=== PATIENT | female | born 1995 ===

== ENCOUNTER 2019-11-25 08:07 | Inpatient (IN) | payer OTHER ==
[2019-11-25] MEDS ORDERED: FAMOTIDINE 20 MG/2 ML INJ IV ONE (08:40)
[2019-11-25] MEDS ORDERED: BICITRA ORAL LIQD 30ML PO ONE (08:40)
[2019-11-25] MEDS ORDERED: METOCLOPRAMIDE 10 MG/2 ML INJ IV ONE (08:40)
[2019-11-25] MEDS ORDERED: OXYTOCIN 20 UNIT/1000ML DRIP 20 UNITS/1,000 ML BAG IV SCH ×2 (09:00→10:00)
[2019-11-25] MEDS ORDERED: LACTATED RINGERS 1,000 ML IV SCH (09:00)
[2019-11-25] MEDS ORDERED: ceFAZolin/Water 2 GM/20 ML 2 GM/20 ML SYRINGE IV NR (09:00)
--- NOTE | 2019-11-25 09:17 | History and Physical Report ---
History of Present Illness Date of examination: 11/25/19 Date of admission: 11/25/19 08:07 Chief complaint: Previous section, desires TOLAC Past History Past Surgical History: section Social history: no significant social history - Obstetrical History Expected Date of Delivery: 11/29/19 Actual Gestation: 39 Week(s) 3 Day(s) : 3 Para: 1 Medications and Allergies Allergies Allergy/AdvReac Type Severity Reaction Status Date / Time No Known Allergies Allergy Verified 11/25/19 08:38 Home Medications Medication Instructions Recorded Confirmed Last Taken Type No Known Home Medications [No 11/25/19 11/25/19 Unknown History Reported Home Medications] Active Meds: Active Medications Oxytocin/Sodium Chloride (Pitocin/Ns 20 Unit/1000ml Drip) 20 units in 1,000 mls @ 0 mls/hr IV TITR NIMA Lactated Ringer's (Lactated Ringers) 1,000 mls @ 2,250 mls/hr IV PREOP NIMA Stop: 11/26/19 09:27 Cefazolin Sodium (Ancef/Sterile Water 2 Gm/20 Ml) 2 gm in 20 mls @ 80 mls/hr IV PREOP NR; Protocol Stop: 11/25/19 23:59 Review of Systems All systems: negative (contractions) - Vital Signs Vital signs: Vital Signs Pulse Pulse Ox 99 H 100 11/25/19 08:58 11/25/19 08:58 Temp Pulse Resp BP Pulse Ox 94 H 116/63 98 11/25/19 09:13 11/25/19 08:59 11/25/19 09:13 - Physical Exam Breasts: Positive: deferred Cardiovascular: Regular rate Lungs: Positive: Clear to auscultation Abdomen: Positive: normal appearance, soft, normal bowel sounds Genitourinary (Female): Positive: normal external genitalia, normal perenium Anus/Rectum: Positive: normal perianal skin Extremities: Positive: normal Deep Tendon Reflex Grade: Normal +2 - Obstetrical FHR: category 1 Uterine Contraction Monitor Mode: External Cervical Dilatation: 1 Cervical Effacement Percentage: 80 station: -2 Uterine Contraction Pattern: Regular Results Result Diagrams: 11/25/19 08:50 All other labs normal. Assessment and Plan patient desires TOLAC informed consent obtained plan for epidural on admission CFM GBS prophylaxis in active labor maternal/ well being reassuring overall Josie Kaye MD
[2019-11-25 09:25] LABS: Basophils # (Auto) 0.1 K/mm3 (0.0-0.1); Basophils % (Auto) 0.6 % (0.0-1.8); Eosinophils # (Auto) 0.1 K/mm3 (0.0-0.4); Hematocrit 36.5 % (30.3-42.9); Hemoglobin 11.7 gm/dl (10.1-14.3); Lymphocytes # (Auto) 2.1 K/mm3 (1.2-5.4); Lymphocytes % (Auto) 18.1 % (13.4-35.0); Mean Corpuscular HGB Conc 32 % (30-34); Mean Corpuscular Volume 72 fl (79-97); Monocytes # (Auto) 0.7 K/mm3 (0.0-0.8); Monocytes % (Auto) 5.9 % (0.0-7.3); Platelet Count 160 K/mm3 (140-440); Red Blood Count 5.03 M/mm3 (3.65-5.03); Red Cell Distribution Width 17.3 % (13.2-15.2)
[2019-11-25] MEDS ORDERED: BUTORPHANOL 2 MG/1 ML INJ IV PRN ×2 (09:29)
[2019-11-25] MEDS ORDERED: LIDOCAINE (2%) 20 MG/1 ML VIAL 20 ML MDV INFILTRATI SCH (10:00)
[2019-11-25] MEDS ORDERED: MINERAL OIL 30 ML ORAL LIQD PO PRN (10:00)
[2019-11-25] MEDS ORDERED: fentaNYL 100 MCG/2 ML INJ IV PRN (10:00)
[2019-11-25] MEDS ORDERED: TERBUTALINE 1 MG/1 ML INJ SUB-Q PRN (10:00)
[2019-11-25] MEDS ORDERED: ONDANSETRON 4 MG/2 ML INJ IV PRN ×4 (10:00→23:16)
[2019-11-25] MEDS ORDERED: OXYTOCIN DRIP 30 UNITS/500 ML BAG IV SCH ×2 (10:00)
[2019-11-25] MEDS ORDERED: TERBUTALINE 1 MG/1 ML INJ IVP PRN (10:00)
[2019-11-25] MEDS ORDERED: NalbUPHINE 10 MG/1 ML INJ IV PRN ×3 (10:00→13:14)
[2019-11-25] MEDS ORDERED: MORPHINE 4 MG/1 ML INJ IV PRN (10:10)
[2019-11-25] MEDS ORDERED: PROMETHAZINE 25 MG TAB PO PRN ×2 (10:10→23:16)
[2019-11-25] MEDS ORDERED: NALOXONE 0.4 MG/1 ML INJ IV PRN (10:10)
[2019-11-25] MEDS ORDERED: PROMETHAZINE 25 MG RECT SUPP PR PRN ×2 (10:10→23:16)
--- NOTE | 2019-11-25 10:16 | Anesthesia Consultation ---
Anesthesia Consult and Med Hx Date of service: 11/25/19 - Airway Anesthetic Teeth Evaluation: Good ROM Head & Neck: Adequate Mental/Hyoid Distance: Adequate Mallampati Class: Class III Intubation Access Assessment: Possibly Difficult - Pulmonary Exam CTA: Yes - Cardiac Exam Cardiac Exam: RRR - Pre-Operative Health Status ASA Pre-Surgery Classification: ASA2 Proposed Anesthetic Plan: Epidural - Pulmonary Hx Smoking: No Hx Asthma: No COPD: No Hx Pneumonia: No Hx Sleep Apnea: No - Cardiovascular System Hx Hypertension: No - Central Nervous System Hx Seizures: No Hx Psychiatric Problems: No - Gastrointestinal Hx Gastroesophageal Reflux Disease: No - Endocrine Hx Renal Disease: No Hx End Stage Renal Disease: No Hx Hypothyroidism: No Hx Hyperthyroidism: No - Hematic Hx Anemia: No Hx Sickle Cell Disease: No - Other Systems Hx Alcohol Use: No
[2019-11-25] MEDS: LACTATED RINGERS 1,000 ML IV SCH ×2 (10:38→10:56)
[2019-11-25] MEDS ORDERED: diphenhydrAMINE 50 MG/ML VIAL IV PRN ×2 (11:00→13:14)
[2019-11-25] MEDS ORDERED: HYDROmorphone 1 MG/1 ML INJ IV PRN (11:00)
[2019-11-25] MEDS ORDERED: AMPICILLIN/NS 2 GM/100 ML 2 GM/100 ML BAG IV ONE (12:00)
[2019-11-25] MEDS ORDERED: DEXMEDETOMIDINE 200 MCG/2 ML VIAL IV ONE (12:50)
[2019-11-25] MEDS ORDERED: NALOXONE 2 MG/2 ML INJ IV PRN (13:14)
--- NOTE | 2019-11-25 13:14 | Progress Note ---
Labor Epidural - Labor Epidural Start Time: 12:55 Stop Time: 13:04 Performed by:: JOHN BARNEY Procedure: Patient is requesting a laboring epidural for laboring pain. Patient IDed, H&P reviewed, all questions and concerns were answered, and consent was signed. Timeout was performed at bedside. Patient in sitting position. Sterile prep and drape was performed. 3ml of 1% lidocaine skin wheal at L[3]- L [4]. 18- gauge Touhy epidural needle was advanced to loss of resistance with air technique. Negative CSF negative blood. Epidural catheter advanced to [12] centimeters. [-] Aspiration [-] test dose. Sterile dressing applied. Patient tolerated procedure.
[2019-11-25] MEDS: ePHEDrine SULFATE 50 MG/1 ML INJ IV PRN ×2 (13:28→13:35)
[2019-11-25] MEDS ORDERED: fentaNYL-BUPIV 2 MCG/ML-0.125% 200 MCG/100 ML BAG EPIDURAL SCH (14:00)
[2019-11-25] MEDS ORDERED: AMPICILLIN/NS 1 GM/50 ML 1 GM/50 ML BAG IV SCH (14:00)
--- NOTE | 2019-11-25 16:52 | Progress Note ---
Subjective - Subjective Date of service: 11/25/19 Interval history: AROM light meconium cervix 4cm/100%/-2 [place]:Q2 minutes plan to dose epidural and continue to monitor FHT Category 1 Maternal/ wellbeing reassuring overall Josie Kaye MD Objective - Vital Signs Vital Signs: Vital Signs - 12hr 11/25/19 11/25/19 11/25/19 08:58 08:59 09:03 Temperature Pulse Rate 99 H 95 H 99 H Blood Pressure 116/63 O2 Sat by Pulse 100 97 Oximetry 11/25/19 11/25/19 11/25/19 09:08 09:13 09:18 Temperature Pulse Rate 95 H 94 H 89 Blood Pressure O2 Sat by Pulse 98 98 96 Oximetry 11/25/19 11/25/19 11/25/19 09:23 09:28 09:33 Temperature Pulse Rate 83 80 95 H Blood Pressure O2 Sat by Pulse 100 97 97 Oximetry 11/25/19 11/25/19 11/25/19 09:38 09:43 09:48 Temperature Pulse Rate 93 H 85 85 Blood Pressure O2 Sat by Pulse 97 96 98 Oximetry 11/25/19 11/25/19 11/25/19 09:53 09:59 10:49 Temperature Pulse Rate 93 H 85 85 Blood Pressure 117/58 118/67 O2 Sat by Pulse 99 Oximetry 11/25/19 11/25/19 11/25/19 10:50 11:17 11:22 Temperature 98.2 F Pulse Rate 90 85 Blood Pressure O2 Sat by Pulse 96 96 Oximetry 11/25/19 11/25/19 11/25/19 11:27 11:32 11:37 Temperature Pulse Rate 102 H 89 89 Blood Pressure O2 Sat by Pulse 97 97 97 Oximetry 11/25/19 11/25/19 11/25/19 11:42 11:47 11:50 Temperature Pulse Rate 96 H 89 83 Blood Pressure 115/65 O2 Sat by Pulse 98 97 Oximetry 11/25/19 11/25/19 11/25/19 11:52 11:57 12:02 Temperature Pulse Rate 91 H 84 89 Blood Pressure O2 Sat by Pulse 98 97 97 Oximetry 11/25/19 11/25/19 11/25/19 12:07 12:12 12:17 Temperature Pulse Rate 87 83 91 H Blood Pressure O2 Sat by Pulse 97 98 98 Oximetry 11/25/19 11/25/19 11/25/19 12:19 12:22 12:27 Temperature Pulse Rate 88 99 H 86 Blood Pressure 111/60 O2 Sat by Pulse 98 98 Oximetry 11/25/19 11/25/19 11/25/19 12:32 12:37 12:42 Temperature Pulse Rate 96 H 90 97 H Blood Pressure O2 Sat by Pulse 98 98 99 Oximetry 11/25/19 11/25/19 11/25/19 12:47 12:49 12:52 Temperature Pulse Rate 99 H 79 114 H Blood Pressure 117/66 O2 Sat by Pulse 98 98 Oximetry 11/25/19 11/25/19 11/25/19 12:57 13:02 13:04 Temperature Pulse Rate 119 H 112 H 113 H Blood Pressure 120/71 124/69 O2 Sat by Pulse 100 98 Oximetry 11/25/19 11/25/19 11/25/19 13:06 13:07 13:09 Temperature Pulse Rate 103 H 99 H 97 H Blood Pressure 118/72 119/58 O2 Sat by Pulse 98 Oximetry 11/25/19 11/25/19 11/25/19 13:10 13:12 13:14 Temperature Pulse Rate 100 H 91 H 103 H Blood Pressure 125/65 124/65 130/63 O2 Sat by Pulse 99 Oximetry 11/25/19 11/25/19 11/25/19 13:16 13:17 13:19 Temperature Pulse Rate 92 H 116 H 84 Blood Pressure 128/62 110/52 O2 Sat by Pulse 99 Oximetry 11/25/19 11/25/19 11/25/19 13:20 13:22 13:23 Temperature Pulse Rate 93 H 102 H 92 H Blood Pressure 103/55 102/46 O2 Sat by Pulse 98 Oximetry 11/25/19 11/25/19 11/25/19 13:25 13:26 13:27 Temperature Pulse Rate 84 89 88 Blood Pressure 89/49 96/53 O2 Sat by Pulse 98 Oximetry 11/25/19 11/25/19 11/25/19 13:28 13:30 13:32 Temperature Pulse Rate 91 H 87 89 Blood Pressure 96/51 94/51 101/57 O2 Sat by Pulse 97 Oximetry 11/25/19 11/25/19 11/25/19 13:34 13:36 13:37 Temperature Pulse Rate 90 94 H 94 H Blood Pressure 104/56 104/53 O2 Sat by Pulse 98 Oximetry 11/25/19 11/25/19 11/25/19 13:38 13:40 13:42 Temperature Pulse Rate 90 90 102 H Blood Pressure 106/51 95/53 103/54 O2 Sat by Pulse 96 Oximetry 11/25/19 11/25/19 11/25/19 13:45 13:47 13:48 Temperature Pulse Rate 91 H 94 H 103 H Blood Pressure 106/51 98/54 102/52 O2 Sat by Pulse 98 Oximetry 11/25/19 11/25/19 11/25/19 13:51 13:52 13:54 Temperature Pulse Rate 93 H 96 H 89 Blood Pressure 96/51 96/54 101/54 O2 Sat by Pulse 97 Oximetry 11/25/19 11/25/19 11/25/19 13:56 13:57 13:58 Temperature Pulse Rate 90 89 96 H Blood Pressure 98/54 99/56 O2 Sat by Pulse 98 Oximetry 11/25/19 11/25/19 11/25/19 14:00 14:02 14:07 Temperature Pulse Rate 109 H 90 92 H Blood Pressure 102/58 O2 Sat by Pulse 99 98 Oximetry 11/25/19 11/25/19 11/25/19 14:12 14:17 14:18 Temperature Pulse Rate 89 88 88 Blood Pressure 110/58 O2 Sat by Pulse 99 98 Oximetry 11/25/19 11/25/19 11/25/19 14:22 14:27 14:32 Temperature Pulse Rate 90 112 H 102 H Blood Pressure O2 Sat by Pulse 98 99 99 Oximetry 11/25/19 11/25/19 11/25/19 14:34 14:37 14:42 Temperature Pulse Rate 99 H 90 90 Blood Pressure 112/54 O2 Sat by Pulse 99 99 Oximetry 11/25/19 11/25/19 11/25/19 14:47 14:52 14:57 Temperature Pulse Rate 93 H 89 91 H Blood Pressure O2 Sat by Pulse 99 99 98 Oximetry 11/25/19 11/25/19 11/25/19 15:02 15:07 15:12 Temperature Pulse Rate 97 H 95 H 94 H Blood Pressure O2 Sat by Pulse 97 97 98 Oximetry 11/25/19 11/25/19 11/25/19 15:16 15:17 15:22 Temperature Pulse Rate 88 91 H 100 H Blood Pressure 107/56 O2 Sat by Pulse 98 99 Oximetry 11/25/19 11/25/19 11/25/19 15:27 15:32 15:37 Temperature Pulse Rate 95 H 99 H 101 H Blood Pressure O2 Sat by Pulse 98 99 99 Oximetry 11/25/19 11/25/19 11/25/19 15:42 15:46 15:47 Temperature Pulse Rate 88 83 87 Blood Pressure 112/65 O2 Sat by Pulse 99 98 Oximetry 11/25/19 11/25/19 11/25/19 15:52 15:57 16:02 Temperature Pulse Rate 94 H 89 98 H Blood Pressure O2 Sat by Pulse 98 99 99 Oximetry 11/25/19 11/25/19 11/25/19 16:07 16:12 16:16 Temperature Pulse Rate 86 101 H 86 Blood Pressure 119/59 O2 Sat by Pulse 98 97 Oximetry 11/25/19 11/25/19 11/25/19 16:17 16:22 16:27 Temperature Pulse Rate 97 H 90 96 H Blood Pressure O2 Sat by Pulse 98 99 98 Oximetry 11/25/19 11/25/19 11/25/19 16:32 16:37 16:42 Temperature Pulse Rate 97 H 88 89 Blood Pressure O2 Sat by Pulse 99 100 99 Oximetry 11/25/19 11/25/19 16:45 16:47 Temperature Pulse Rate 96 H 95 H Blood Pressure 140/85 O2 Sat by Pulse 99 Oximetry - Labs Labs: Abnormal Labs 11/25/19 08:50 WBC 11.6 H MCV 72 L MCH 23 L RDW 17.3 H Seg Neutrophils % 74.4 H Seg Neutrophils # 8.6 H Laboratory Results - last 24 hr 11/25/19 11/25/19 11/25/19 08:50 08:50 08:50 WBC 11.6 H RBC 5.03 Hgb 11.7 Hct 36.5 MCV 72 L MCH 23 L MCHC 32 RDW 17.3 H Plt Count 160 Lymph % (Auto) 18.1 [place] % (Auto) 5.9 Eos % (Auto) 1.0 Baso % (Auto) 0.6 Lymph # 2.1 [place] # 0.7 Eos # 0.1 Baso # 0.1 Seg Neutrophils % 74.4 H Seg Neutrophils # 8.6 H Syphilis IgG Antibody Nonreactive Blood Type O POSITIVE Antibody Screen Negative
[2019-11-25] MEDS ORDERED: BUPIVACAINE/PF (0.5%) 5 MG/1 ML 10 ML VIAL INFILTRATI ONE (17:19)
--- NOTE | 2019-11-25 19:31 | Progress Note ---
Assessment and Plan A: IUP@ 39.3 wks CAT 1 FHT P: Continue monitoring Anticipate Subjective - Subjective Date of service: 11/25/19 Principal diagnosis: IUP@ 39.3 wks Interval history: A: IUP@ 39.3 wks CAT 1 FHT P: Continue monitoring Anticipate Patient reports: movement normal Objective - Vital Signs Vital Signs: Vital Signs - 12hr 11/25/19 11/25/19 11/25/19 08:58 08:59 09:03 Temperature Pulse Rate 99 H 95 H 99 H Blood Pressure 116/63 O2 Sat by Pulse 100 97 Oximetry 11/25/19 11/25/19 11/25/19 09:08 09:13 09:18 Temperature Pulse Rate 95 H 94 H 89 Blood Pressure O2 Sat by Pulse 98 98 96 Oximetry 11/25/19 11/25/19 11/25/19 09:23 09:28 09:33 Temperature Pulse Rate 83 80 95 H Blood Pressure O2 Sat by Pulse 100 97 97 Oximetry 11/25/19 11/25/19 11/25/19 09:38 09:43 09:48 Temperature Pulse Rate 93 H 85 85 Blood Pressure O2 Sat by Pulse 97 96 98 Oximetry 11/25/19 11/25/19 11/25/19 09:53 09:59 10:49 Temperature Pulse Rate 93 H 85 85 Blood Pressure 117/58 118/67 O2 Sat by Pulse 99 Oximetry 11/25/19 11/25/19 11/25/19 10:50 11:17 11:22 Temperature 98.2 F Pulse Rate 90 85 Blood Pressure O2 Sat by Pulse 96 96 Oximetry 11/25/19 11/25/19 11/25/19 11:27 11:32 11:37 Temperature Pulse Rate 102 H 89 89 Blood Pressure O2 Sat by Pulse 97 97 97 Oximetry 11/25/19 11/25/19 11/25/19 11:42 11:47 11:50 Temperature Pulse Rate 96 H 89 83 Blood Pressure 115/65 O2 Sat by Pulse 98 97 Oximetry 11/25/19 11/25/19 11/25/19 11:52 11:57 12:02 Temperature Pulse Rate 91 H 84 89 Blood Pressure O2 Sat by Pulse 98 97 97 Oximetry 11/25/19 11/25/19 11/25/19 12:07 12:12 12:17 Temperature Pulse Rate 87 83 91 H Blood Pressure O2 Sat by Pulse 97 98 98 Oximetry 11/25/19 11/25/19 11/25/19 12:19 12:22 12:27 Temperature Pulse Rate 88 99 H 86 Blood Pressure 111/60 O2 Sat by Pulse 98 98 Oximetry 11/25/19 11/25/19 11/25/19 12:32 12:37 12:42 Temperature Pulse Rate 96 H 90 97 H Blood Pressure O2 Sat by Pulse 98 98 99 Oximetry 11/25/19 11/25/19 11/25/19 12:47 12:49 12:52 Temperature Pulse Rate 99 H 79 114 H Blood Pressure 117/66 O2 Sat by Pulse 98 98 Oximetry 11/25/19 11/25/19 11/25/19 12:57 13:02 13:04 Temperature Pulse Rate 119 H 112 H 113 H Blood Pressure 120/71 124/69 O2 Sat by Pulse 100 98 Oximetry 11/25/19 11/25/19 11/25/19 13:06 13:07 13:09 Temperature Pulse Rate 103 H 99 H 97 H Blood Pressure 118/72 119/58 O2 Sat by Pulse 98 Oximetry 11/25/19 11/25/19 11/25/19 13:10 13:12 13:14 Temperature Pulse Rate 100 H 91 H 103 H Blood Pressure 125/65 124/65 130/63 O2 Sat by Pulse 99 Oximetry 11/25/19 11/25/19 11/25/19 13:16 13:17 13:19 Temperature Pulse Rate 92 H 116 H 84 Blood Pressure 128/62 110/52 O2 Sat by Pulse 99 Oximetry 11/25/19 11/25/19 11/25/19 13:20 13:22 13:23 Temperature Pulse Rate 93 H 102 H 92 H Blood Pressure 103/55 102/46 O2 Sat by Pulse 98 Oximetry 11/25/19 11/25/19 11/25/19 13:25 13:26 13:27 Temperature Pulse Rate 84 89 88 Blood Pressure 89/49 96/53 O2 Sat by Pulse 98 Oximetry 11/25/19 11/25/19 11/25/19 13:28 13:30 13:32 Temperature Pulse Rate 91 H 87 89 Blood Pressure 96/51 94/51 101/57 O2 Sat by Pulse 97 Oximetry 11/25/19 11/25/19 11/25/19 13:34 13:36 13:37 Temperature Pulse Rate 90 94 H 94 H Blood Pressure 104/56 104/53 O2 Sat by Pulse 98 Oximetry 11/25/19 11/25/19 11/25/19 13:38 13:40 13:42 Temperature Pulse Rate 90 90 102 H Blood Pressure 106/51 95/53 103/54 O2 Sat by Pulse 96 Oximetry 11/25/19 11/25/19 11/25/19 13:45 13:47 13:48 Temperature Pulse Rate 91 H 94 H 103 H Blood Pressure 106/51 98/54 102/52 O2 Sat by Pulse 98 Oximetry 11/25/19 11/25/19 11/25/19 13:51 13:52 13:54 Temperature Pulse Rate 93 H 96 H 89 Blood Pressure 96/51 96/54 101/54 O2 Sat by Pulse 97 Oximetry 11/25/19 11/25/19 11/25/19 13:56 13:57 13:58 Temperature Pulse Rate 90 89 96 H Blood Pressure 98/54 99/56 O2 Sat by Pulse 98 Oximetry 11/25/19 11/25/19 11/25/19 14:00 14:02 14:07 Temperature 98.2 F Pulse Rate 109 H 90 92 H Blood Pressure 102/58 O2 Sat by Pulse 99 98 Oximetry 11/25/19 11/25/19 11/25/19 14:12 14:17 14:18 Temperature Pulse Rate 89 88 88 Blood Pressure 110/58 O2 Sat by Pulse 99 98 Oximetry 11/25/19 11/25/19 11/25/19 14:22 14:27 14:32 Temperature Pulse Rate 90 112 H 102 H Blood Pressure O2 Sat by Pulse 98 99 99 Oximetry 11/25/19 11/25/19 11/25/19 14:34 14:37 14:42 Temperature Pulse Rate 99 H 90 90 Blood Pressure 112/54 O2 Sat by Pulse 99 99 Oximetry 11/25/19 11/25/19 11/25/19 14:47 14:52 14:57 Temperature Pulse Rate 93 H 89 91 H Blood Pressure O2 Sat by Pulse 99 99 98 Oximetry 11/25/19 11/25/19 11/25/19 15:00 15:02 15:07 Temperature 98.0 F Pulse Rate 97 H 95 H Blood Pressure O2 Sat by Pulse 97 97 Oximetry 11/25/19 11/25/19 11/25/19 15:12 15:16 15:17 Temperature Pulse Rate 94 H 88 91 H Blood Pressure 107/56 O2 Sat by Pulse 98 98 Oximetry 11/25/19 11/25/19 11/25/19 15:22 15:27 15:32 Temperature Pulse Rate 100 H 95 H 99 H Blood Pressure O2 Sat by Pulse 99 98 99 Oximetry 11/25/19 11/25/19 11/25/19 15:37 15:42 15:46 Temperature Pulse Rate 101 H 88 83 Blood Pressure 112/65 O2 Sat by Pulse 99 99 Oximetry 11/25/19 11/25/19 11/25/19 15:47 15:52 15:57 Temperature Pulse Rate 87 94 H 89 Blood Pressure O2 Sat by Pulse 98 98 99 Oximetry 11/25/19 11/25/19 11/25/19 16:02 16:07 16:12 Temperature Pulse Rate 98 H 86 101 H Blood Pressure O2 Sat by Pulse 99 98 97 Oximetry 11/25/19 11/25/19 11/25/19 16:16 16:17 16:22 Temperature Pulse Rate 86 97 H 90 Blood Pressure 119/59 O2 Sat by Pulse 98 99 Oximetry 11/25/19 11/25/19 11/25/19 16:27 16:32 16:37 Temperature Pulse Rate 96 H 97 H 88 Blood Pressure O2 Sat by Pulse 98 99 100 Oximetry 11/25/19 11/25/19 11/25/19 16:42 16:45 16:47 Temperature Pulse Rate 89 96 H 95 H Blood Pressure 140/85 O2 Sat by Pulse 99 99 Oximetry 11/25/19 11/25/19 11/25/19 16:52 16:57 17:02 Temperature Pulse Rate 90 89 84 Blood Pressure O2 Sat by Pulse 99 98 98 Oximetry 11/25/19 11/25/19 11/25/19 17:07 17:12 17:16 Temperature Pulse Rate 92 H 97 H 88 Blood Pressure 125/81 O2 Sat by Pulse 98 98 Oximetry 11/25/19 11/25/19 11/25/19 17:17 17:22 17:27 Temperature Pulse Rate 82 96 H 92 H Blood Pressure O2 Sat by Pulse 99 99 98 Oximetry 11/25/19 11/25/19 11/25/19 17:32 17:37 17:42 Temperature Pulse Rate 101 H 85 89 Blood Pressure O2 Sat by Pulse 99 98 98 Oximetry 11/25/19 11/25/19 11/25/19 17:46 17:47 17:52 Temperature Pulse Rate 85 91 H 95 H Blood Pressure 103/58 O2 Sat by Pulse 97 97 Oximetry 11/25/19 11/25/19 11/25/19 17:57 18:02 18:07 Temperature Pulse Rate 97 H 82 89 Blood Pressure O2 Sat by Pulse 96 98 96 Oximetry 11/25/19 11/25/19 11/25/19 18:12 18:15 18:17 Temperature Pulse Rate 96 H 87 92 H Blood Pressure 106/60 O2 Sat by Pulse 98 98 Oximetry 11/25/19 11/25/19 11/25/19 18:22 18:27 18:32 Temperature Pulse Rate 86 94 H 95 H Blood Pressure O2 Sat by Pulse 97 97 97 Oximetry 11/25/19 11/25/19 11/25/19 18:37 18:42 18:45 Temperature Pulse Rate 104 H 93 H 102 H Blood Pressure 102/56 O2 Sat by Pulse 99 98 Oximetry 11/25/19 11/25/19 11/25/19 18:47 18:52 18:57 Temperature Pulse Rate 95 H 94 H 101 H Blood Pressure O2 Sat by Pulse 98 99 99 Oximetry 11/25/19 11/25/19 11/25/19 19:02 19:07 19:12 Temperature Pulse Rate 90 94 H 98 H Blood Pressure O2 Sat by Pulse 99 100 99 Oximetry 11/25/19 11/25/19 19:15 19:17 Temperature Pulse Rate 102 H 101 H Blood Pressure 107/58 O2 Sat by Pulse 98 Oximetry - Exam Breasts: deferred Abdomen: Present: normal appearance, soft Vulva: both: normal Uterus: Present: normal, other (gravid) FHR: category 1 Uterine Contraction Monitor Mode: External Cervical Dilatation: 6 Cervical Effacement Percentage: 100 station: -1 Uterine Contraction Pattern: Regular Uterine Tone Measurement Phase: Resting Uterine Contraction Intensity: Strong/Firm Extremities: normal - Labs Labs: Abnormal Labs 11/25/19 08:50 WBC 11.6 H MCV 72 L MCH 23 L RDW 17.3 H Seg Neutrophils % 74.4 H Seg Neutrophils # 8.6 H Laboratory Results - last 24 hr 11/25/19 11/25/19 11/25/19 08:50 08:50 08:50 WBC 11.6 H RBC 5.03 Hgb 11.7 Hct 36.5 MCV 72 L MCH 23 L MCHC 32 RDW 17.3 H Plt Count 160 Lymph % (Auto) 18.1 [place] % (Auto) 5.9 Eos % (Auto) 1.0 Baso % (Auto) 0.6 Lymph # 2.1 [place] # 0.7 Eos # 0.1 Baso # 0.1 Seg Neutrophils % 74.4 H Seg Neutrophils # 8.6 H Syphilis IgG Antibody Nonreactive Blood Type O POSITIVE Antibody Screen Negative
[2019-11-25] MEDS ORDERED: MORPHINE 2 MG/1 ML INJ IM ONE (23:00)
[2019-11-25] MEDS ORDERED: MORPHINE 2 MG/1 ML INJ ONE (23:11)
[2019-11-25] MEDS ORDERED: LIDOCAINE (2%) 20 MG/1 ML VIAL 20 ML MDV INFILTRATI ONE (23:11)
[2019-11-25] MEDS ORDERED: LANOLIN/ZINC/DIMETHICONE (LANSINOH) 7 GM TP PRN (23:16)
[2019-11-25] MEDS ORDERED: WITCH HAZEL/ GLYCERIN PAD TP PRN (23:16)
[2019-11-25] MEDS ORDERED: MAGNESIUM HYDROXIDE (MOM) ORAL LIQD UDC PO PRN (23:16)
[2019-11-25] MEDS ORDERED: diphenhydrAMINE 25 MG CAP PO PRN (23:16)
[2019-11-25] MEDS ORDERED: HYDROcodone/ACETAMINOPHEN 5-325 MG TAB PO PRN (23:16)
[2019-11-25] MEDS ORDERED: ACETAMINOPHEN 325 MG TAB PO PRN (23:16)
[2019-11-25] MEDS ORDERED: METHYLERGONOVINE MALEATE 0.2 MG/ML VIAL IM ONE (23:16)
[2019-11-25] MEDS ORDERED: miSOPROStol 200 MCG TAB ONE (23:57)
[2019-11-25] MEDS ORDERED: miSOPROStol 100 MCG TAB ONE (23:58)
[2019-11-26] MEDS ORDERED: miSOPROStol 200 MCG TAB PR ONE (00:03)
[2019-11-26] MEDS ORDERED: ONDANSETRON 4 MG/2 ML INJ IV PRN (00:26)
[2019-11-26] MEDS ORDERED: LANOLIN/ZINC/DIMETHICONE (LANSINOH) 7 GM TP PRN (00:26)
[2019-11-26] MEDS ORDERED: MAGNESIUM HYDROXIDE (MOM) ORAL LIQD UDC PO PRN (00:26)
[2019-11-26] MEDS ORDERED: WITCH HAZEL/ GLYCERIN PAD TP PRN (00:26)
[2019-11-26] MEDS ORDERED: diphenhydrAMINE 25 MG CAP PO PRN (00:26)
[2019-11-26] MEDS ORDERED: PROMETHAZINE 25 MG RECT SUPP PR PRN (00:26)
[2019-11-26] MEDS ORDERED: PROMETHAZINE 25 MG TAB PO PRN (00:26)
--- NOTE | 2019-11-26 00:44 | Procedure Note ---
OB Delivery Note - Vaginal Delivery presentation: vertex, compound Delivery position: OA Intrapartum events: meconium Delivery induction: none Delivery augmentation: pitocin Delivery monitor: external FHT, external uterine Route of delivery: Delivery placenta: spontaneous Delivery cord: 3 umbilical vessels Episiotomy: none Delivery laceration: 2nd degree Delivery repair: vicryl Anesthesia: local, epidural Delivery comments: Called to for delivery and found pt pushing and ready to deliver. SVE 10/100%/+1. of live viable female . Spontaneous delivery of head and right arm together followed by infant's shoulders which were delivered with ease. Infant placed on mom's chest/abd for initial bonding. Cord clamping was delayed by 90 sec then cord was clamped times 2 and cut by FOB. Infant was given to awaiting NICU nurse for an asses. 8/9. Spontaneous delivery of intact placenta with CVX3. FF@ U1 with fundal massage,IV Pitocin, and 800mcg of Cytotec IA. Exploration of tears revealed a 2nd degree perineal laceration which was repaired with 3-0 vicryl on a CT1. EBL 250cc. Mom and baby stable. - A at 1 minute: 8 at 5 minutes: 9 Gender: Female (WT 3607 GMS)
[2019-11-26] MEDS ORDERED: IBUPROFEN 600 MG TAB PO SCH (01:00)
[2019-11-26] MEDS: IBUPROFEN 600 MG TAB PO SCH ×2 (05:03→16:14)
--- NOTE | 2019-11-26 07:33 | Post Anesthesia Evaluation ---
- Post Anesthesia Evaluation Patient Participated: Yes Airway Patent: Yes Stable Respiratory Function: Yes Nausea/Vomiting: No Temp > 96.8F: Yes Pain Manageable: Yes Adequeate Hydration: Yes Anesthesia Complications: No Block Receding Appropriately: Yes Patient on Ventilator: No
[2019-11-26] MEDS: PRENATAL VIT27-FE FUMARATE-FOLIC ACID VIT TAB PO SCH (10:02)
[2019-11-26] MEDS: DOCUSATE SODIUM 100 MG CAP PO SCH ×2 (10:02→22:05)
[2019-11-26 11:53] LABS: Hematocrit 28.2 % (30.3-42.9); Hemoglobin 8.9 gm/dl (10.1-14.3)
[2019-11-27] MEDS: IBUPROFEN 600 MG TAB PO SCH ×5 (00:19→22:36)
[2019-11-27] MEDS: DOCUSATE SODIUM 100 MG CAP PO SCH ×2 (09:32→22:35)
[2019-11-27] MEDS: PRENATAL VIT27-FE FUMARATE-FOLIC ACID VIT TAB PO SCH (09:32)
--- NOTE | 2019-11-27 12:20 | Discharge Summary ---
Providers - Providers Date of Admission: 11/25/19 08:07 Date of discharge: 11/27/19 Attending physician: DENILSON MOLINA MD Primary care physician: DENILSON MOLINA MD Hospitalization Reason for admission: active labor Delivery: Episiotomy: none Laceration: 2nd degree (healing as expected) Other procedures: none complications: none Discharge diagnosis: IUP at term delivered, other (anemia) [place] baby: female Hospital course: See admission H & P; OB delivery summary and PP progress notes Condition at discharge: Stable Disposition: DC-01 TO HOME OR SELFCARE - Discharge Diagnoses (1) Status post normal vaginal delivery Status: Acute (2) Anemia Status: Acute Qualifiers: Anemia type: other cause Other causes of anemia: acute posthemorrhagic Qualified Code(s): D62 - Acute posthemorrhagic anemia Plan - Provider Discharge Summary Activity: routine, no sex for 6 weeks, no heavy lifting 4 weeks, no strenuous exercise Diet: other (Iron rich diet) Instructions: routine Additional instructions: [] Smoking cessation referral if applicable(refer to patient education folder for contact #) [] Refer to [facility] Booklet Call your doctor immediately for: * Fever > 100.5 * Heavy vaginal bleeding ( >1 pad per hour) * Severe persistent headache * Shortness of breath * Reddened, hot, painful area to leg or breast * Drainage or odor from incision. * Keep incision clean and dry at all times and follow doctor's instructions regarding bathing/showering - Follow up plan Follow up: DENILSON MOLINA MD [Primary Care Provider] - 6 Weeks
[2019-11-27 18:29] VITALS: BP 111/66
== END 2019-11-27 23:20 | disposition home or self-care (01) | DRG 806 ==
LOC: APU 08:07 → LD 11:29 → OB 11-26 02:30
PROVIDERS: ADMIT Obstetrics & Gynecology; ATTEND Obstetrics & Gynecology
PROC: 10907ZC Drainage of Amniotic Fluid, Therapeutic from Products of Conception, Via Natural or Artificial Opening (ICD-10-PCS; 2019-11-25)
PROC: 10E0XZZ Delivery of Products of Conception, External Approach (ICD-10-PCS; principal; 2019-11-26)
PROC: 0KQM0ZZ Repair Perineum Muscle, Open Approach (ICD-10-PCS; 2019-11-26)
PROC: 3E0R3BZ Introduction of Anesthetic Agent into Spinal Canal, Percutaneous Approach (ICD-10-PCS; 2019-11-26)
PROC: 00HU33Z Insertion of Infusion Device into Spinal Canal, Percutaneous Approach (ICD-10-PCS; 2019-11-26)
DX: O77.0 Labor and delivery complicated by meconium in amniotic fluid (principal); D62 Acute posthemorrhagic anemia; Z37.0 Single live birth; O34.211 Maternal care for low transverse scar from previous cesarean delivery; O70.1 Second degree perineal laceration during delivery; O99.02 Anemia complicating childbirth; Z3A.39 39 weeks gestation of pregnancy
CPT/HCPCS: 36415; 59025; 85014; 85018; 85025; 86592; 86850; 86900; 86901; 96360; G0378; J0290; J2210; J2270; J2590; J3490; J7120

== ENCOUNTER 2019-12-17 11:02 | Emergency (ER) | payer SELFPAY ==
[2019-12-17 11:44] VITALS: BP 125/65
--- NOTE | 2019-12-17 12:58 | Emergency Department Report ---
Blank Doc - Documentation Documentation: 24-year-old female that presents with right lower abdominal pain and pelvic pa in. tachycardia in triage RLQ tenderness. This initial assessment/diagnostic orders/clinical plan/treatment(s) is/are subject to change based on patient's health status, clinical progression and re- assessment by fellow clinical providers in the ED. Further treatment and workup at subsequent clinical providers discretion. Patient/guardians urged not to elope from the ED as their condition may be serious if not clinically assessed and managed. Initial orders include: 1- Patient sent to [facility] for further evaluation and treatment 2- labs 3- UA
[2019-12-17 14:03] LABS: Basophils # (Auto) 0.1 K/mm3 (0.0-0.1); Basophils % (Auto) 0.4 % (0.0-1.8); Hematocrit 36.5 % (30.3-42.9); Hemoglobin 11.4 gm/dl (10.1-14.3); Lymphocytes # (Auto) 1.5 K/mm3 (1.2-5.4); Lymphocytes % (Auto) 11.7 % (13.4-35.0); Mean Corpuscular HGB Conc 31 % (30-34); Mean Corpuscular Volume 75 fl (79-97); Monocytes # (Auto) 0.9 K/mm3 (0.0-0.8); Monocytes % (Auto) 7.1 % (0.0-7.3); Platelet Count 243 K/mm3 (140-440); Red Blood Count 4.89 M/mm3 (3.65-5.03); Red Cell Distribution Width 18.2 % (13.2-15.2)
[2019-12-17 14:59] LABS: Alanine Aminotransferase 11 units/L (7-56); Albumin 4.8 g/dL (3.9-5); Blood Urea Nitrogen 10 mg/dL (7-17); Calcium 9.5 mg/dL (8.4-10.2); Hemolysis Index 21
[2019-12-17 15:03] LABS: BUN/Creatinine Ratio 17
[2019-12-17] MEDS ORDERED: SODIUM CHLORIDE 0.9% 1000 ML 1,000 ML IV ONE (17:23)
[2019-12-17] MEDS ORDERED: oxyCODONE /ACETAMINOPHEN 5-325MG TAB PO ONE (17:23)
--- NOTE | 2019-12-17 18:59 | Cat Scan Report ---
CT ABDOMEN AND PELVIS WITH CONTRAST INDICATION / CLINICAL INFORMATION: Lower ABD Pain. TECHNIQUE: Axial CT images were obtained through the abdomen and pelvis after IV contrast. All CT scans at this location are performed using CT dose reduction for ALARA by means of automated exposure control. COMPARISON: No prior CT. Prior ultrasound of the abdomen dated 07/09/2019. FINDINGS: LOWER CHEST: No significant abnormality. LIVER: No significant abnormality. GALLBLADDER: No significant abnormality. BILE DUCTS: No significant abnormality. PANCREAS: No significant abnormality. SPLEEN: No significant abnormality. ADRENALS: No significant abnormality. RIGHT KIDNEY / URETER: No significant abnormality. LEFT KIDNEY / URETER: No significant abnormality. STOMACH / SMALL BOWEL: No significant abnormality. COLON: No significant abnormality. APPENDIX: No significant abnormality. PERITONEUM: No free fluid. No free air. No fluid collection. LYMPH NODES: No significant adenopathy. AORTA / ARTERIES: No significant abnormality. IVC / VEINS: No significant abnormality. URINARY BLADDER: Grossly distended urinary bladder. REPRODUCTIVE ORGANS: Thickened and hypervascular uterus which with fluid in the endometrial cavity is displaced to the right secondary to the distended bladder. ADDITIONAL FINDINGS: None. SKELETAL SYSTEM: No significant abnormality. IMPRESSION: 1. Significantly distended urinary bladder. 2. Physiologic changes of the uterus and bilateral ovaries. 3. No evidence of acute abdominopelvic abnormality. Signer Name: Goran Ruelas MD Signed: 12/17/2019 6:55 PM Workstation Name: [id number]
--- NOTE | 2019-12-17 19:45 | Emergency Department Report ---
<JAZLYN ROMAN - Last Filed: 12/17/19 19:40> ED Female HPI - General Chief complaint: Urogenital-Female Stated complaint: POST COMPLICATIONS Time Seen by Provider: 12/17/19 12:57 Source: patient Mode of arrival: Wheelchair Limitations: Language Barrier - History of Present Illness Initial comments: 24-year-old female 3weeks with vaginal delivery presents emergency department complaining of a 2 to 3-day history of acute pelvic pain with scant vaginal bleeding with heavy pressure and some urinary complications. Reports no trauma. Ports no fever, chills, sweats no chest pain no palpitations no nausea, no vomiting, hematemesis no hematochezia. 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 denies: headaches, loss of appetite, rash, seizure, shortness of breath, syncope, weakness - Related Data Sexually active: No Previous Rx's Medication Instructions Recorded Last Taken Type Phenazopyridine [Pyridium] 100 mg PO TID 2 Days #6 tab 12/17/19 Unknown Rx Sulfamethoxazole/Trimethoprim 1 each PO BID 7 Days #14 tablet 12/17/19 Unknown Rx [Bactrim DS TAB] Allergies Allergy/AdvReac Type Severity Reaction Status Date / Time No Known Allergies Allergy Verified 11/25/19 08:38 ED Review of Systems Comment: All other systems reviewed and negative ED Past Medical Hx - Past Medical History Previous Medical History?: Yes Hx Hypertension: No Hx Congestive Heart Failure: No Hx Diabetes: No Hx Deep Vein Thrombosis: No Hx Renal Disease: No Hx Sickle Cell Disease: No Hx Seizures: No Hx Asthma: No Hx COPD: No Hx HIV: No - Surgical History Past Surgical History?: Yes Additional Surgical History: C section - Social History Smoking Status: Never Smoker Substance Use Type: None - Medications Home Medications: Home Medications Medication Instructions Recorded Confirmed Last Taken Type Phenazopyridine [Pyridium] 100 mg PO TID 2 Days #6 tab 12/17/19 Unknown Rx Sulfamethoxazole/Trimethoprim 1 each PO BID 7 Days #14 tablet 12/17/19 Unknown Rx [Bactrim DS TAB] ED Physical Exam - General Limitations: Language Barrier General appearance: alert, in no apparent distress - Head Head exam: Present: atraumatic, normocephalic - Eye Eye exam: Present: normal appearance - ENT ENT exam: Present: mucous membranes moist - Neck Neck exam: Present: normal inspection - Respiratory Respiratory exam: Present: normal lung sounds bilaterally. Absent: respiratory distress - Cardiovascular Cardiovascular Exam: Present: regular rate, normal rhythm. Absent: systolic murmur, diastolic murmur, rubs, gallop - GI/Abdominal GI/Abdominal exam: Present: soft, tenderness (Tenderness to the suprapubic region), guarding, normal bowel sounds. Absent: rebound - Extremities Exam Extremities exam: Present: normal inspection, normal capillary refill - Back Exam Back exam: Present: normal inspection - Neurological Exam Neurological exam: Present: alert, oriented X3, CN II-XII intact - Psychiatric Psychiatric exam: Present: normal affect, normal mood - Skin Skin exam: Present: warm, dry, intact, normal color. Absent: rash ED Medical Decision Making - Lab Data Result diagrams: 12/17/19 13:20 12/17/19 13:20 Lab Results 12/17/19 12/17/19 12/17/19 Range/Units 13:20 13:20 13:20 WBC 12.7 H (4.5-11.0) K/mm3 RBC 4.89 (3.65-5.03) M/mm3 Hgb 11.4 (10.1-14.3) gm/dl Hct 36.5 (30.3-42.9) % MCV 75 L (79-97) fl MCH 23 L (28-32) pg MCHC 31 (30-34) % RDW 18.2 H (13.2-15.2) % Plt Count 243 (140-440) K/mm3 Lymph % (Auto) 11.7 L (13.4-35.0) % Menard % (Auto) 7.1 (0.0-7.3) % Eos % (Auto) 0.0 (0.0-4.3) % Baso % (Auto) 0.4 (0.0-1.8) % Lymph # 1.5 (1.2-5.4) K/mm3 Menard # 0.9 H (0.0-0.8) K/mm3 Eos # 0.0 (0.0-0.4) K/mm3 Baso # 0.1 (0.0-0.1) K/mm3 Seg Neutrophils % 80.8 H (40.0-70.0) % Seg Neutrophils # 10.2 H (1.8-7.7) K/mm3 Sodium 141 (137-145) mmol/L Potassium 4.3 (3.6-5.0) mmol/L Chloride 103.6 (98-107) mmol/L Carbon Dioxide 19 L (22-30) mmol/L Anion Gap 23 mmol/L BUN 10 (7-17) mg/dL Creatinine 0.6 (0.6-1.2) mg/dL Estimated GFR > 60 ml/min BUN/Creatinine Ratio 17 % Glucose 95 (65-100) mg/dL Calcium 9.5 (8.4-10.2) mg/dL Total Bilirubin 0.60 (0.1-1.2) mg/dL AST 20 (5-40) units/L ALT 11 (7-56) units/L Alkaline Phosphatase 165 H (35-129) units/L Total Protein 7.7 (6.3-8.2) g/dL Albumin 4.8 (3.9-5) g/dL Albumin/Globulin Ratio 1.7 % Lipase 29 (13-60) units/L HCG, Qual Negative (Negative) Referring Physician:JAZLYN ROMANPatient Name:MARK Ballardtient ID:[id number] of :[id number]:FemaleAccession:[id number] Date:[id number] Status:Finalized Findings [place] [id number] Cat Scan Report Signed Patient: MARK HARDING MR#: [id number] : 1995 Acct:[id number] Age/Sex: 24 / F ADM Date: 12/17/19 Loc: ED Attending Dr: Ordering Physician: KEVIN LORD Date of Service: 12/17/19 Procedure(s): CT abdomen pelvis w con Accession Number(s): [id number] cc: KEVIN LORD CT ABDOMEN AND PELVIS WITH CONTRAST INDICATION / CLINICAL INFORMATION: Lower ABD Pain. TECHNIQUE: Axial CT images were obtained through the abdomen and pelvis after IV contrast. All CT scans at this location are performed using CT dose reduction for ALARA by means of automated exposure control. COMPARISON: No prior CT. Prior ultrasound of the abdomen dated 07/09/2019. FINDINGS: LOWER CHEST: No significant abnormality. LIVER: No significant abnormality. GALLBLADDER: No significant abnormality. BILE DUCTS: No significant abnormality. PANCREAS: No significant abnormality. SPLEEN: No significant abnormality. ADRENALS: No significant abnormality. RIGHT KIDNEY / URETER: No significant abnormality. LEFT KIDNEY / URETER: No significant abnormality. STOMACH / SMALL BOWEL: No significant abnormality. COLON: No significant abnormality. APPENDIX: No significant abnormality. PERITONEUM: No free fluid. No free air. No fluid collection. LYMPH NODES: No significant adenopathy. AORTA / ARTERIES: No significant abnormality. IVC / VEINS: No significant abnormality. URINARY BLADDER: Grossly distended urinary bladder. REPRODUCTIVE ORGANS: Thickened and hypervascular uterus which with fluid in the endometrial cavity is displaced to the right secondary to the distended bladder. ADDITIONAL FINDINGS: None. SKELETAL SYSTEM: No significant abnormality. IMPRESSION: 1. Significantly distended urinary bladder. 2. Physiologic changes of the uterus and bilateral ovaries. 3. No evidence of acute abdominopelvic abnormality. Signer Name: Goran Rao MD Signed: 12/17/2019 6:55 PM Workstation Name: [id number] Transcribed By: Dictated By: GORAN RAO Electronically Authenticated By: GORAN RAO Signed Date/Time: 12/17/191854 DD/ 44 TD/TT: - Radiology Data fReferring Physician:JAZLYN ROMANPatient Name:MARK COLONAPatient ID:[id number] of :[id number]:FemaleAccession:[id number] Date:[id number] Status:Finalized Findings [facility] [address] [place] [address] Cat Scan Report Signed Patient: MARK HARDING MR#: [id number] : 1995 Acct:[id number] Age/Sex: 24 / F ADM Date: 12/17/19 Loc: ED Attending Dr: Ordering Physician: KEVIN LORD Date of Service: 12/17/19 Procedure(s): CT abdomen pelvis w con Accession Number(s): [id number] cc: KEVIN LORD CT ABDOMEN AND PELVIS WITH CONTRAST INDICATION / CLINICAL INFORMATION: Lower ABD Pain. TECHNIQUE: Axial CT images were obtained through the abdomen and pelvis after IV contrast. All CT scans at this location are performed using CT dose reduction for ALARA by means of automated exposure control. COMPARISON: No prior CT. Prior ultrasound of the abdomen dated 07/09/2019. FINDINGS: LOWER CHEST: No significant abnormality. LIVER: No significant abnormality. GALLBLADDER: No significant abnormality. BILE DUCTS: No significant abnormality. PANCREAS: No significant abnormality. SPLEEN: No significant abnormality. ADRENALS: No significant abnormality. RIGHT KIDNEY / URETER: No significant abnormality. LEFT KIDNEY / URETER: No significant abnormality. STOMACH / SMALL BOWEL: No significant abnormality. COLON: No significant abnormality. APPENDIX: No significant abnormality. PERITONEUM: No free fluid. No free air. No fluid collection. LYMPH NODES: No significant adenopathy. AORTA / ARTERIES: No significant abnormality. IVC / VEINS: No significant abnormality. URINARY BLADDER: Grossly distended urinary bladder. REPRODUCTIVE ORGANS: Thickened and hypervascular uterus which with fluid in the endometrial cavity is displaced to the right secondary to the distended bladder. ADDITIONAL FINDINGS: None. SKELETAL SYSTEM: No significant abnormality. IMPRESSION: 1. Significantly distended urinary bladder. 2. Physiologic changes of the uterus and bilateral ovaries. 3. No evidence of acute abdominopelvic abnormality. Signer Name: Goran Rao MD Signed: 12/17/2019 6:55 PM Workstation Name: [id number] Transcribed By: Dictated By: GORAN RAO Electronically Authenticated By: GORAN RAO Signed Date/Time: 12/17/191854 DD/ 44 TD/TT: - Medical Decision Making This patient presents with abdominal pain of unclear etiology. A CT scan was performed to evaluate for potential causes of the abdominal pain, however, neither the clinical exam nor the CT has identified an emergent etiology for the abdominal pain. Specifically, given the benign exam, the laboratory studies, and unremarkable CT, I have a very low suspicion for appendicitis, ischemic bowel, bowel perforation, or any other life threatening disease. I have discussed with the patient the level of uncertainty with undifferentiated abdominal pain and clearly explained the need to follow-up as noted on the discharge instructions, or return to the Emergency Department immediately if the pain worsens, develops fever, persistent and uncontrollable vomiting, or for any new symptoms or concerns. Female presents emergency department with over [ ] days of episodic vaginal bleeding most likely of a nonemergent etiology. Based on the history, examination, the ED work-up patient's presentation not consistent with an ectopic , molar , life threatening coagulopathy, serious bacterial infection, central process or other emergency. Patient's bleeding is most likely secondary to, fibroids, or the nonemergent cause of abnormal uterine bleeding. 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[employer] follow-up most likely case was signed out to John Feliciano to evaluate for the urine if the urine shows urinary tract infection will treat accordingly due to the findings on the CT scan and patient complaints ED Disposition Clinical Impression: UTI (urinary tract infection) Qualifiers: Urinary tract infection type: acute cystitis Hematuria presence: with hematuria Qualified Code(s): N30.01 - Acute cystitis with hematuria Disposition: DC- TO HOME OR SELFCARE Condition: Stable Instructions: Urinary Tract Infection in Women (ED) Prescriptions: Sulfamethoxazole/Trimethoprim [Bactrim DS TAB] 1 each PO BID 7 Days #14 tablet Phenazopyridine [Pyridium] 100 mg PO TID 2 Days #6 tab Referrals: ANA CRISTINA DOUGLASS MD [Staff Physician] - 2-3 Days Forms: Work/School Release Form(ED) <JUAN HASSAN - Last Filed: 12/17/19 20:51> ED Review of Systems ROS: Stated complaint: POST COMPLICATIONS Other details as noted in HPI ED Course Vital Signs 12/17/19 11:41 Temperature 98.2 F Pulse Rate 111 H Respiratory 16 Rate Blood Pressure 125/65 [Right] O2 Sat by Pulse 98 Oximetry ED Medical Decision Making - Lab Data Result diagrams: 12/17/19 13:20 12/17/19 13:20 Labs 12/17/19 12/17/19 12/17/19 13:20 13:20 13:20 WBC 12.7 H RBC 4.89 Hgb 11.4 Hct 36.5 MCV 75 L MCH 23 L MCHC 31 RDW 18.2 H Plt Count 243 Lymph % (Auto) 11.7 L Menard % (Auto) 7.1 Eos % (Auto) 0.0 Baso % (Auto) 0.4 Lymph # 1.5 Menard # 0.9 H Eos # 0.0 Baso # 0.1 Seg Neutrophils % 80.8 H Seg Neutrophils # 10.2 H Sodium 141 Potassium 4.3 Chloride 103.6 Carbon Dioxide 19 L Anion Gap 23 BUN 10 Creatinine 0.6 Estimated GFR > 60 BUN/Creatinine Ratio 17 Glucose 95 Calcium 9.5 Total Bilirubin 0.60 AST 20 ALT 11 Alkaline Phosphatase 165 H Total Protein 7.7 Albumin 4.8 Albumin/Globulin Ratio 1.7 Lipase 29 HCG, Qual Negative Urine Color Urine Turbidity Urine pH Ur Specific [place]ira Urine Protein Urine Glucose (UA) Urine Ketones Urine Blood Urine Nitrite Urine Bilirubin Urine Urobilinogen Ur Leukocyte Esterase Urine WBC (Auto) Urine RBC (Auto) U Epithel Cells (Auto) Urine Bacteria (Auto) Urine WBC Clumps Urine Mucus 12/17/19 Unknown WBC RBC Hgb Hct MCV MCH MCHC RDW Plt Count Lymph % (Auto) Menard % (Auto) Eos % (Auto) Baso % (Auto) Lymph # Menard # Eos # Baso # Seg Neutrophils % Seg Neutrophils # Sodium Potassium Chloride Carbon Dioxide Anion Gap BUN Creatinine Estimated GFR BUN/Creatinine Ratio Glucose Calcium Total Bilirubin AST ALT Alkaline Phosphatase Total Protein Albumin Albumin/Globulin Ratio Lipase HCG, Qual Urine Color Yellow Urine Turbidity Clear Urine pH 6.0 Ur Specific Exira > 1.030 H Urine Protein 30 mg/dl Urine Glucose (UA) Neg Urine Ketones Tr Urine Blood Sm Urine Nitrite Neg Urine Bilirubin Neg Urine Urobilinogen < 2.0 Ur Leukocyte Esterase Lg Urine WBC (Auto) 73.0 H Urine RBC (Auto) 20.0 U Epithel Cells (Auto) 3.0 Urine Bacteria (Auto) 1+ Urine WBC Clumps 3+ Urine Mucus Few - Medical Decision Making ua pos for luek, wbc, rbc will dc to home as above, pt to home with rx, pt dc'd at this time, pt is a./o x 3, ambulatory with steady gait at this time. Critical care attestation.: If time is entered above; I have spent that time in minutes in the direct care of this critically ill patient, excluding procedure time. ED Disposition Is pt being admited?: No Does the pt Need Aspirin: No
[2019-12-17 20:06] LABS: Bacteria,Urine 1+ /HPF (Negative); Bilirubin,Urine NEG (Negative); Blood,Urine SM (Negative); Color,Urine Yellow (Yellow); Mucus,Urine FEW /HPF; Urobilinogen,Urine < 2.0 mg/dL (<2.0)
== END 2019-12-17 21:10 | disposition home or self-care (01) ==
LOC: ED 11:02
DX: N39.0 Urinary tract infection, site not specified (principal); Z79.899 Other long term (current) drug therapy; Z98.890 Other specified postprocedural states
CPT/HCPCS: 36415; 74177; 80053; 81001; 83690; 84703; 85025; 87086; 96360; 99284; J7030; Q9967